=== PATIENT | male | born 1975 | race African-American/Black ===

== ENCOUNTER 2024-06-16 20:12 | Emergency (ER) | payer OTHER, SELFPAY ==
[2024-06-16 20:14] VITALS: BP 140/92; PULSE 102; TEMP 36.9; O2SAT 92; BMI 29.3
[2024-06-16 20:34] VITALS: O2SAT 94
--- NOTE | 2024-06-16 20:53 | ECG_ITS ---
[facility] Test Date: 2024-06-16 Pat Name: CHAO EVANS Department: Room: - Gender: Male [employer] Man: : 1975 Requested By: [id number] Order Number: [id number] Reading MD: SAMUEL ZHOU Measurements Intervals [place] Rate: 104 P: 70 DC: 124 QRS: 70 QRSD: 82 T: 53 QT: 332 QTc: 393 Interpretive Statements 1120 Sinus tachycardia 9140 abnormal rhythm ECG No previous ECG available for comparison Electronically Signed On 06-16-2024 23:03:53 EDT by SAMUEL ZHOU
--- NOTE | 2024-06-16 20:53 | XR_ITS ---
[address] [address] Patient Name: CHAO EVANS MRN: [id number] date: 1975 Sex: M Assigned Patient Location: ED.MAIN Current Patient Location: ED.MAIN Accession/Order Number: [id number] Exam Date: 06/16/2024 22:59 Report Date: 06/16/2024 21:44 At the request of: LUZ MARIA ALONZO Procedure: XR chest 2V EXAM: XR chest 2V HISTORY: shortness of breath COMPARISON: 06/15/2024 exam TECHNIQUE: Chest x-ray PA and lateral views FINDINGS: Clear lungs bilaterally. No acute pulmonary infiltrates. Cardiac shadow within normal. Normal hilar shadows. Central mediastinum. No pleural effusions. XR/XR chest 2V IMPRESSION: No evidence of acute cardiopulmonary process. Electronically authenticated by: EDWIGE BROUSSARD Date: 06/16/2024 21:44
[2024-06-16 21:01] LABS: Hematocrit 47.4 % (42.0-54.0); Hemoglobin 16.1 g/dL (14.0-18.0); Mean Corpuscular Hemoglobin 30.1 pg (25.9-34.0); Mean Corpuscular Volume 88.6 fL (80.0-94.0); Mean Platelet Volume 10.6 fL (9.5-13.5); Platelet Count 212 10^3/uL (150-450); Red Blood Count 5.35 10^6/uL (4.70-6.10); Red Cell Distribution Width 12.8 % (11.0-15.0); White Blood Count 13.2 10^3/uL (4.0-11.0)
--- NOTE | 2024-06-16 21:03 | ED.GENADUL1 ---
HPI HPI - General Adult General Chief complaint: Chest Pain Stated complaint: CHEST PAIN SOB Time Seen by Provider: 06/16/24 20:27 Source: patient Mode of arrival: walk-in Limitations: no limitations History of Present Illness HPI narrative: 48-year-old male to the emergency department with chief complaint of wheezing, shortness of breath, sinus congestion. Symptoms been ongoing for 2 weeks since he returned home from [place]. He has been on a Z-Josh as well as ibnf-jmi-exkzjgc cough and cold medication has not improved. Albuterol seem to help. No history of asthma or COPD. He had some left-sided sharp chest discomfort tonight. Past medical history: None Related Data Home Medications ?Medication ?Instructions ?Recorded ?Confirmed No Known Home Medications 06/16/24 06/16/24 Previous Rx's ?Medication ?Instructions ?Recorded albuterol sulfate 90 mcg/actuation 2 inh inhalation Q4H PRN shortness 06/16/24 aerosol inhaler of breath or wheezing #6.7 grams amoxicillin 875 mg-potassium 1 tab PO Q12H #14 tabs 06/16/24 clavulanate 125 mg tablet prednisone 20 mg tablet 60 mg (3 x 20 mg) PO DAILY 5 days 06/16/24 #15 tabs Allergies Allergy/AdvReac Type Severity Reaction Status Date / Time No Known Drug Allergies Allergy Verified 06/16/24 20:23 Opioid HPI Opioid Management Most Recent Opioid Data: Last Pain Scale 0 06/16/24 20:33 Review of Systems ROS Status of ROS 10 or more systems reviewed and unremarkable except as noted in history and below Exam Narrative Exam Narrative: VITALS: I have reviewed the triage vital signs. GENERAL: Well developed, well appearing adult in no acute distress. NEURO: Alert and oriented. Moves all extremities. Face is symmetric and expressive. EYES: PERRL. No scleral icterus or conjunctival injection. No discharge. HENT: Normocephalic, atraumatic. Hearing is grossly intact. Nares grossly patent and without discharge. Mucous membranes moist. NECK: No JVD. Patient moves neck without restriction. CARDIO: Rhythm regular. Normal rate. No murmur, rub, or gallop. Pulses equal bilaterally in the upper and lower extremity. No lower extremity edema. PULM: End expiratory wheezing throughout. No conversational dyspnea. GI/: Abdomen is soft and non-tender. Normoactive bowel sounds. EXTREMITIES: Symmetric muscle bulk. No joint swelling. No clubbing, cyanosis, or deformity. SKIN: Warm and dry. Normal turgor. No rash or lesions appreciated. PSYCH: Mood, affect, and interaction is appropriate to the setting. Constitutional Vital Signs, click to edit/add: Last Vital Signs Temp 98.5 F 06/16/24 20:14 Pulse 101 H 06/16/24 21:31 Resp 24 H 06/16/24 21:31 BP 137/76 06/16/24 21:31 Pulse Ox 93 L 06/16/24 21:31 O2 Del Method Room Air 06/16/24 21:10 Course Vital Signs Vital signs: Vital Signs Temperature 98.5 F 06/16/24 20:14 Pulse Rate 102 H 06/16/24 20:14 Respiratory Rate 16 06/16/24 20:14 Blood Pressure 140/92 H 06/16/24 20:14 Pulse Oximetry 92 L 06/16/24 20:14 Oxygen Delivery Method Room Air 06/16/24 20:14 Temperature 98.5 F 06/16/24 20:14 Pulse Rate 101 H 06/16/24 21:31 Respiratory Rate 24 H 06/16/24 21:31 Blood Pressure 137/76 06/16/24 21:31 Pulse Oximetry 93 L 06/16/24 21:31 Oxygen Delivery Method Room Air 06/16/24 21:10 Medical Decision Making MDM Narrative Medical decision making narrative: 48-year-old male to the emergency department chief complaint of cough, sinus congestion, shortness of breath, chest pain. Vital stable, the patient is afebrile. Cardiac workup is initiated. History and exam suggest bronchitis with possible superimposed sinusitis. He has been sick for over 2 weeks with the symptoms. DuoNeb treatment given the diffuse wheezing. Will give him a dose of Solu-Medrol. He has not been on steroids. CBC and chemistry are unremarkable. His troponin is low. EKG without evidence of ischemia. Chest x-ray without acute findings. Mild hypokalemia, oral potassium was given. Patient felt near completely improved after the DuoNeb treatment. Low risk by heart score. Appears to have bronchitis with superimposed sinusitis. Will place him on a course of Augmentin for the sinusitis. Steroids and albuterol for the bronchitis. Patient agrees with this plan. He will follow-up with PCP. Return precautions were discussed. All questions were answered. The patient was discharged home. Heart Score for Major Cardiac Event History: Example factors for history - pattern of chest pain, onset, duration, relation with exercise, stress or cold, localization, concomitant symptoms. reaction to sublingual nitrates, [] Highly suspicious +2 [] Moderately suspicious +1 [X] Slightly suspicious 0 EKG: [] Significant ST-Depression +2 [] Non specific repolarization disturbance +1 [X] Normal 0 Age: [] >= 65 +2 [X] 45-65 + 1 [] <45 0 Risk Factors: (HLD, HTN, DM, Cigarette Smoking, Pos Family Hx, Obesity) [] >3 risk factors or hx of atherosclerotic disease + 2 [] 1-2 risk factors + 1 [X] No risk factors known 0 Troponin: [] >= 3X normal + 2 [] 1-3X normal + 1 [X] <= Normal 0 [X] 0-3 Points 0.9 - 1.7% risk of major adverse cardiac event in 6 weeks [] 4-6 Points 12-16.6% risk of major adverse cardiac event in 6 weeks [] 7-10 Points 50-65% risk of major adverse cardiac event in 6 weeks [] 0-3 Points with 2 sets of negative cardiac markers <1% risk of major adverse cardiac event in 30 days. [facility] DATA #116 - Avoidance of Antibiotic Treatment for Acute Bronchitis/Bronchiolitis [] The patient has acute bronchitis/bronchiolitis and antibiotics were not prescribed or dispensed today. [SATISFIES MIPS PERFORMANCE] [X] The patient has acute bronchitis/ bronchiolitis. Antibiotics were prescribed or dispensed because the patient meets one of the following: [MIPS PERFORMANCE EXCEPTION/EXCLUSION] [X] Patient has a medical reason for prescribing or dispensing an antibiotic. That reason is [SINUSITIS] (ex. COPD, bacterial infection, acute sinusitis, etc.). [] Patient is currently on antibiotics or has been in the last 30 days. [] Patient's visit resulted in an inpatient admission. [] The patient has acute bronchitis/ bronchiolitis and antibiotics were prescribed or dispensed today. [DOES NOT SATISFY MIPS PERFORMANCE] [facility] DATA #331 & 332: Antibiotic use with Sinusitis [] The patient has sinusitis and antibiotics are not indicated/not prescribed at this time. [SATISFIES MIPS PERFORMANCE] [x] The patient has sinusitis with symptom onset greater than 10 days ago and the patient was prescribed antibiotics. [SATISFIES MIPS PERFORMANCE] [x] Patient was prescribed an amoxicillin-based antibiotic. [] Patient was prescribed a non amoxicillin-based antibiotic because [] (ex. allergy, intolerance, secondary infection like Acute Pharyngitis, Cellulitis, UTI) [] Patient was prescribed a non amoxicillin-based antibiotic. [] The patient has sinusitis and was prescribed antibiotics because [] (ex. patient's symptoms worsened after initial improvement, patient has secondary infection, patient is immunocompromised) [MIPS PERFORMANCE EXCEPTION/EXCLUSION] [] Patient was prescribed an amoxicillin-based antibiotic. [] Patient was prescribed a non amoxicillin-based antibiotic because [] (ex. allergy, intolerance, secondary infection like Acute Pharyngitis, Cellulitis, UTI) [] Patient was prescribed a non amoxicillin-based antibiotic. [] The patient has sinusitis with symptom onset less than or equal to 10 ago days and antibiotics WERE prescribed. [DOES NOT SATISFY MIPS PERFORMANCE] [] Patient was prescribed an amoxicillin-based antibiotic. [] Patient was prescribed a non amoxicillin-based antibiotic because [] (ex. allergy, intolerance, secondary infection like Acute Pharyngitis, Cellulitis, UTI) [] Patient was prescribed a non amoxicillin-based antibiotic. Medical Records Medical records reviewed: Yes I reviewed the patient's medical records Lab Data Lab results reviewed: Yes I reviewed the patient's lab results Labs: Lab Results 06/16/24 Range/Units 20:28 WBC 13.2 H (4.0-11.0) 10^3/uL RBC 5.35 (4.70-6.10) 10^6/uL Hgb 16.1 (14.0-18.0) g/dL Hct 47.4 (42.0-54.0) % MCV 88.6 (80.0-94.0) fL MCH 30.1 (25.9-34.0) pg MCHC 34.0 (29.9-35.2) g/dL RDW 12.8 (11.0-15.0) % Plt Count 212 (150-450) 10^3/uL MPV 10.6 (9.5-13.5) fL Seg Neuts % (Manual) 67.0 (43.0-75.0) Band Neutrophils % 1.0 (0-5) % Lymphocytes % (Manual) 6.0 L (20.5-60.0) % Monocytes % (Manual) 6.0 (1.7-12.0) % Eosinophils % (Manual) 19.0 H (0.9-7.0) % Basophils % (Manual) 1.0 (0.2-2.0) % Neutrophils # (Manual) 8.84 H (1.4-6.5) 10^3/uL Band Neutrophils # 0.1 (0.0-0.3) 10^3/uL Lymphocytes # (Manual) 0.79 L (1.20-3.80) 10^3/uL Monocytes # (Manual) 0.79 (0.30-0.80) 10^3/uL Eosinophils # (Manual) 2.50 H (0.00-0.70) 10^3/uL Basophils # (Manual) 0.13 H (0.00-0.10) 10^3/uL Sodium 135 L (136-145) mmol/L Potassium 3.1 L (3.5-5.1) mmol/L Chloride 100 (98-107) mmol/L Carbon Dioxide 23.2 (21.0-32.0) mmol/L Anion Gap 14.9 BUN 12.0 (7.0-18.0) mg/dL Creatinine 1.24 (0.70-1.30) mg/dL Est GFR ( Amer) >60 (>=60 mL/min/1.73m^2) Est GFR (Non-Af Amer) >60 (>=60 mL/min/1.73m^2) BUN/Creatinine Ratio 9.7 Glucose 104 (74-106) mg/dL Calcium 9.2 (8.5-10.1) mg/dL Troponin I High Sens 4.4 (4.0-76.1) pg/mL Imaging Data Chest x-ray: Attestation: I have reviewed the pertinent imaging results. Radiologist's impression: ITS Impressions Chest X-Ray 06/16/24 20:53 IMPRESSION: No evidence of acute cardiopulmonary process. Electronically authenticated by: EDWIGE CHAVEZD Date: 06/16/2024 21:44 ECG Data Attestation: I personally reviewed and interpreted this ECG as follows: (Sinus tachycardia at a rate of 104. No STEMI. Normal QTc) Discharge Plan Discharge Chief Complaint: Chest Pain Clinical Impression: Bronchitis, Sinusitis Patient Disposition: Home, Self-Care Time of Disposition Decision: 22:04 Condition: Good Mode of Transportation: Private Vehicle Prescriptions / Home Meds: New amoxicillin-pot clavulanate 875-125 mg tablet 1 tab PO Q12H Qty: 14 0RF albuterol sulfate 90 mcg/actuation HFA aerosol inhaler 2 inh inhalation Q4H PRN (Reason: shortness of breath or wheezing) Qty: 6.7 0RF prednisone 20 mg tablet 60 mg PO DAILY 5 Days Qty: 15 0RF No Action No Known Home Medications Print Language: [place] Instructions: Sinusitis (ED), How to Use a Metered-Dose Inhaler (ED), Acute Bronchitis (ED) Additional Instructions: Call the office of your primary care doctor to arrange for follow-up within the above-stated timeframe. Your ED visit was focused on your acute issue and does not replace primary care. You should review your labs, imaging, and diagnoses from this ED visit with your primary care physician. There may be non-emergent/ incidental findings that need further evaluation. You should review your vital signs including blood pressure with your PCP. If you were prescribed medications you should discuss possible side-effects and drug interactions with your pharmacist. Call 911 or go to the nearest Emergency Department if you develop any new or worsening symptoms. Seek immediate medical attention if you develop: worsening shortness of breath, difficulty breathing, chest pain, nausea, vomiting, weakness, numbness, tingling, excessive sweating, loss of motion in your arms or legs, or any new or worsening symptoms. Referrals: Guillermo Zee MD [Physician] - 1 week Physician,Non-Staff, [Primary Care Provider] - 1 week
[2024-06-16] MEDS: IPRATROPIUM/ALBUTEROL SULFATE 3 ML AMPUL.NEB IH (21:07)
[2024-06-16 21:10] VITALS: PULSE 95; O2SAT 93
[2024-06-16 21:18] LABS: Band Neutrophils Absolute 0.1 10^3/uL (0.0-0.3); Basophils Abs Manual 0.13 10^3/uL (0.00-0.10); Lymphocytes Absolute Manual 0.79 10^3/uL (1.20-3.80); Monocytes Absolute Manual 0.79 10^3/uL (0.30-0.80); Segmented Neut Absolute Manual 8.84 10^3/uL (1.4-6.5)
[2024-06-16 21:19] LABS: Anion Gap 14.9; BUN Creatinine Ratio 9.7; Calcium 9.2 mg/dL (8.5-10.1); Carbon Dioxide 23.2 mmol/L (21.0-32.0); Chloride 100 mmol/L (98-107); Estimated GFR (African America >60 (>=60 mL/min/1.73m^2); Estimated GFR (Non-African Ame >60 (>=60 mL/min/1.73m^2); Glucose 104 mg/dL (74-106); Potassium 3.1 mmol/L (3.5-5.1); Sodium 135 mmol/L (136-145); Troponin I High Sensitivity 4.4 pg/mL (4.0-76.1)
[2024-06-16] MEDS: METHYLPREDNISOLONE SOD SUCC PF 125 MG/2 ML VIAL IVP (21:22)
[2024-06-16 21:31] VITALS: BP 137/76; PULSE 101; O2SAT 93
[2024-06-16 22:18] VITALS: BP 128/81; PULSE 94; O2SAT 94
[2024-06-16] MEDS: POTASSIUM CHLORIDE 10 MEQ ER TABLET 40 MEQ PO (22:18)
== END 2024-06-16 22:25 | disposition home or self-care (01) ==
PROVIDERS: Emergency Provider Student in an Organized Health Care Education/Training Program
DX: J40 Bronchitis, not specified as acute or chronic (principal); J32.9 Chronic sinusitis, unspecified
CPT/HCPCS: 36415; 71046; 80048; 84484; 85007; 85027; 93005; 94640; 96374; 99285; J2919